=== PATIENT | male | born 1995 | race Two or more races ===

== ENCOUNTER 2018-01-16 13:50 | Emergency (ER) | payer OTHER ==
[2018-01-16] MEDS: DEXAMETHASONE SOD PHOS 20 MG/5 ML VIAL. IM (14:22)
[2018-01-16] MEDS: KETOROLAC 60 MG/2 ML INJ. IM (14:23)
[2018-01-16] MEDS: MORPHINE SULFATE 10 MG/ML VIAL. IM (14:23)
[2018-01-16] MEDS: diazePAM 5 MG TABLET PO (14:24)
== END 2018-01-16 14:53 | disposition home or self-care (01) ==
LOC: ER 13:50
DX: M54.42 Lumbago with sciatica, left side (principal); G89.29 Other chronic pain
CPT/HCPCS: 96372; 99284; J1100; J1885; J2270